=== PATIENT | male | born 1950 | race Caucasian/White ===

== ENCOUNTER 2025-01-22 16:54 | Inpatient (IN) | payer MEDICARE, OTHER ==
[~2025-01-22] VITALS: Ht 170.2 cm; Wt 68.0 kg
[2025-01-22 17:39] LABS: PLATELET COUNT (AUTO) 196 K/uL (152-348); RED BLOOD CELL COUNT(AUTO) 5.27 MIL/uL (4.06-5.63); RED CELL DISTRIBUTION WIDTH 14.7 % (12.1-16.2); WHITE BLOOD COUNT (AUTO) 10.3 K/uL (3.6-10.2)
[2025-01-22 17:48] LABS: CREATININE 1.2 mg/dL (0.6-1.3); SODIUM SERUM 146 mmol/L (136-145); UREA NITROGEN, BLOOD 29 mg/dL (7-18)
[2025-01-22] MEDS ORDERED: OLANZAPINE 10 MG VIAL IM ONE (17:48)
[2025-01-22] MEDS ORDERED: LORAZEPAM 2 MG/1 ML VIAL ONE (17:49)
[2025-01-22] MEDS: OLANZAPINE 10 MG VIAL IM ONE (17:49)
[2025-01-22] MEDS: LORAZEPAM 2 MG/1 ML VIAL IM ONE (17:49)
[2025-01-22 17:54] LABS: ASPARTATE AMINOTRANSFERASE 10 U/L (15-37); ETHANOL < 3 MG/DL (0-10); TOTAL PROTEIN, SERUM 7.5 g/dL (6.4-8.2)
[2025-01-22] MEDS ORDERED: MEMA10TA PO (17:56)
[2025-01-22] MEDS ORDERED: AMIN30LI66 PO (17:56)
[2025-01-22] MEDS ORDERED: RISP2TAB5 PO (17:56)
[2025-01-22] MEDS ORDERED: ATEN50TA PO (17:56)
[2025-01-22] MEDS ORDERED: QUET25TA PO (17:56)
[2025-01-22] MEDS ORDERED: ZINC50TA69 PO (17:56)
[2025-01-22] MEDS ORDERED: TAMS-3 PO (17:56)
[2025-01-22] MEDS ORDERED: ASCO500C19 PO (17:56)
[2025-01-22] MEDS ORDERED: DIVA250T4 PO (17:56)
[2025-01-22] MEDS ORDERED: LORA-259 PO (17:56)
[2025-01-22] MEDS ORDERED: FENO145T21 PO (17:56)
[2025-01-22] MEDS ORDERED: ASPI81TA31 PO (17:56)
[2025-01-22] MEDS ORDERED: OLAN5TAB70 PO (17:56)
[2025-01-22 19:06] VITALS: BP 158/105
[2025-01-22] MEDS ORDERED: TEMAZEPAM 7.5 MG CAPSULE PO PRN (21:30)
[2025-01-22] MEDS ORDERED: MAGNESIUM HYDROXIDE 30 ML LIQUID UDC PO PRN (21:30)
[2025-01-22] MEDS ORDERED: MAG HYDROX/AL HYDROX/SIMETH 30 ML LIQUID UDC PO PRN (21:30)
[2025-01-22] MEDS: LORAZEPAM 1 MG TABLET PO PRN (21:42)
[2025-01-22] MEDS: ACETAMINOPHEN 325 MG TABLET PO PRN (21:42)
[2025-01-22 21:45] VITALS: BP 158/83; TEMP 97.7; O2SAT 98
[2025-01-22] MEDS: BLOOD SUGAR DIAGNOSTIC 1 EACH STRIP VI ONE (22:25)
[2025-01-23] MEDS: PROTEIN SUPPLEMENT (PROSTAT) 30 ML LIQUID PO SCH (08:15)
[2025-01-23] MEDS: ASCORBIC ACID 500 MG TABLET PO SCH (08:30)
[2025-01-23] MEDS: ATENOLOL 50 MG TABLET PO SCH (08:31)
[2025-01-23] MEDS: ZINC SULFATE 220 MG CAPSULE PO SCH (08:31)
[2025-01-23] MEDS: ASPIRIN 81 MG TAB.CHEW PO SCH (08:32)
[2025-01-23 08:40] LABS: GLUCOSE FASTING 121.0 mg/dL (70-115)
[2025-01-23 08:43] VITALS: BP 131/98; O2SAT 98
[2025-01-23] MEDS ORDERED: ACET325T53 PO (09:30)
[2025-01-23] MEDS ORDERED: MAGN400O6 PO (09:31)
[2025-01-23] MEDS ORDERED: NA P133E RC (09:32)
[2025-01-23] MEDS ORDERED: DOCU100C36 PO (09:32)
[2025-01-23] MEDS ORDERED: BISA10SU61 RC (09:33)
[2025-01-23] MEDS ORDERED: IBUP-76 PO (09:34)
[2025-01-23] MEDS ORDERED: HYDR-4209 PO (09:35)
[2025-01-23] MEDS ORDERED: CLON0.1T PO (09:36)
[2025-01-23] MEDS: DIVALPROEX 250 MG TABLET.DR PO SCH (12:59)
[2025-01-23 15:53] VITALS: BP 163/103; O2SAT 98
[2025-01-23] MEDS: CLONIDINE-TTS 1 PATCH TD SCH (16:19)
[2025-01-23 20:00] VITALS: BP 171/100; TEMP 96.5; O2SAT 98
[2025-01-23] MEDS: TAMSULOSIN HCL 0.4 MG CAP.SR.24H PO SCH (20:51)
[2025-01-23] MEDS: FENOFIBRATE NANOCRYSTALLIZED 145 MG TABLET PO SCH (20:51)
[2025-01-24 06:23] VITALS: BP 130/78; O2SAT 92
[2025-01-24 08:00] VITALS: BP 146/73; TEMP 98; O2SAT 96
[2025-01-24] MEDS: LORAZEPAM 1 MG TABLET PO PRN (13:32)
[2025-01-24 15:47] VITALS: BP 136/69; TEMP 98; O2SAT 96
[2025-01-24] MEDS: QUETIAPINE FUMARATE 25 MG TABLET PO SCH ×2 (16:53→20:24)
[2025-01-24 20:00] VITALS: BP 156/76; TEMP 97.8; O2SAT 96
[2025-01-24] MEDS: TEMAZEPAM 7.5 MG CAPSULE PO PRN (21:56)
[2025-01-25 07:47] VITALS: BP 100/61; TEMP 97.8; O2SAT 98
[2025-01-25 15:48] VITALS: BP 112/70; TEMP 98; O2SAT 98
[2025-01-25 20:00] VITALS: BP 135/56; TEMP 98.1; O2SAT 97
[2025-01-25] MEDS: REMEDY ESSENTIAL ZINC PASTE 113 GM TOP SCH (20:25)
[2025-01-26 08:12] VITALS: BP 123/54; TEMP 98.2; O2SAT 96
[2025-01-26 15:34] VITALS: BP 125/52; TEMP 98; O2SAT 98
[2025-01-26 20:00] VITALS: BP 109/51; TEMP 97.6; O2SAT 97
[2025-01-27 08:12] VITALS: BP 117/57; TEMP 98; O2SAT 98
[2025-01-27 16:48] VITALS: BP 117/57; TEMP 98; O2SAT 98
[2025-01-27 20:00] VITALS: BP 161/80; TEMP 98.3; O2SAT 97
[2025-01-28 07:15] LABS: PLATELET COUNT (AUTO) 93 K/uL (152-348); RED BLOOD CELL COUNT(AUTO) 4.61 MIL/uL (4.06-5.63); RED CELL DISTRIBUTION WIDTH 14.6 % (12.1-16.2); WHITE BLOOD COUNT (AUTO) 5.3 K/uL (3.6-10.2)
[2025-01-28 07:33] LABS: CREATININE 1.1 mg/dL (0.6-1.3); SODIUM SERUM 145 mmol/L (136-145); UREA NITROGEN, BLOOD 23 mg/dL (7-18)
[2025-01-28 08:20] VITALS: BP 145/79; TEMP 98; O2SAT 98
[2025-01-28 08:38] LABS: NEUTROPHILS % (MANUAL) 57 % (42-75)
[2025-01-28 08:39] LABS: EOSINOPHILS % (MANUAL) 3 % (0-8); LYMPHOCYTES % (MANUAL) 33 % (20-40); MONOCYTES % (MANUAL) 7 % (2-10); PLATELET ESTIMATE DECREASED
[2025-01-28 20:00] VITALS: BP 204/101; TEMP 97.9; O2SAT 99
[2025-01-28] MEDS: QUETIAPINE FUMARATE 25 MG TABLET PO SCH (20:56)
[2025-01-28 21:00] VITALS: BP 168/80
[2025-01-28 23:55] VITALS: BP 138/66
[2025-01-29] MEDS: CLONIDINE-TTS 1 PATCH TD SCH (00:12)
[2025-01-29 07:57] LABS: PLATELET COUNT (AUTO) 92 K/uL (152-348); RED BLOOD CELL COUNT(AUTO) 4.56 MIL/uL (4.06-5.63); RED CELL DISTRIBUTION WIDTH 14.7 % (12.1-16.2); WHITE BLOOD COUNT (AUTO) 4.3 K/uL (3.6-10.2)
[2025-01-29 08:12] VITALS: BP 102/60; O2SAT 97
[2025-01-29] MEDS: QUETIAPINE FUMARATE 25 MG TABLET PO SCH (12:57)
[2025-01-29] MEDS: DIVALPROEX SPRINKLE 125 MG CAP.SPRINK PO SCH (12:59)
[2025-01-29] MEDS ORDERED: DIVALPROEX SPRINKLE 125 MG CAP.SPRINK PO SCH (13:00)
[2025-01-29 20:00] VITALS: BP 145/71; TEMP 97.6; O2SAT 97
[2025-01-29] MEDS: ATORVASTATIN 40 MG TABLET PO SCH (20:35)
[2025-01-30 07:36] VITALS: BP 153/74; TEMP 97.7; O2SAT 97
[2025-01-30] MEDS ORDERED: CLONIDINE-TTS 1 PATCH TD SCH (09:00)
[2025-01-30 16:00] VITALS: BP 144/76; TEMP 97.7; O2SAT 97
[2025-01-30] MEDS: QUETIAPINE FUMARATE 25 MG TABLET PO SCH (17:21)
[2025-01-30 20:00] VITALS: BP 132/64
[2025-01-30] MEDS: QUETIAPINE FUMARATE 100 MG TABLET PO SCH (21:05)
[2025-01-31 08:16] VITALS: BP 136/62; TEMP 98.2; O2SAT 96
[2025-01-31] MEDS: DIVALPROEX SPRINKLE 125 MG CAP.SPRINK PO SCH (09:03)
[2025-01-31 10:03] LABS: *BILIRUBIN,URIN 1+ (NEGATIVE); *BLOOD, URINE NEGATIVE (NEGATIVE); *CLARITY,URINE CLEAR (CLEAR); *COLOR,URINE Other (YELLOW); *KETONES,URINE 1+ (NEGATIVE); *PROTEIN,URINE NEGATIVE (NEGATIVE); *UROBILINOGEN,URINE 4.0 E.U./dl (NORMAL); LEUKOCYTE ESTERASE ,URINE 1+ (NEGATIVE); NITRITE, URINE NEGATIVE (NEGATIVE); UGLUCOSE NEGATIVE (NEGATIVE)
[2025-01-31 10:41] LABS: CALCIUM OXALATE CRYSTALS,UR FEW /HPF (NONE SEEN)
[2025-01-31 15:49] VITALS: BP 131/67; TEMP 98.2; O2SAT 99
[2025-01-31 20:01] VITALS: BP 161/70; TEMP 97.8; O2SAT 98
[2025-02-01 07:32] LABS: PLATELET COUNT (AUTO) 87 K/uL (152-348); RED BLOOD CELL COUNT(AUTO) 5.01 MIL/uL (4.06-5.63); RED CELL DISTRIBUTION WIDTH 14.9 % (12.1-16.2); WHITE BLOOD COUNT (AUTO) 4.6 K/uL (3.6-10.2)
[2025-02-01 08:07] VITALS: BP 102/63; TEMP 98; O2SAT 96
[2025-02-01 09:08] LABS: NEUTROPHILS % (MANUAL) 51 % (42-75)
[2025-02-01 09:09] LABS: EOSINOPHILS % (MANUAL) 3 % (0-8); LYMPHOCYTES % (MANUAL) 36 % (20-40); MONOCYTES % (MANUAL) 10 % (2-10); PLATELET ESTIMATE DECREASED
[2025-02-01 15:15] VITALS: BP 143/72; TEMP 97.8; O2SAT 99
[2025-02-01] MEDS: DIVALPROEX SPRINKLE 125 MG CAP.SPRINK PO SCH (17:08)
[2025-02-01 19:33] VITALS: BP 134/74; TEMP 97.9; O2SAT 98
[2025-02-01] MEDS: QUETIAPINE FUMARATE 100 MG TABLET PO SCH (20:41)
[2025-02-02 08:21] VITALS: BP_SYST 136; BP_DIAS 50; BP_DIAS 60; TEMP 98.2; O2SAT 98
[2025-02-02 15:10] VITALS: BP 163/75; TEMP 98.2; O2SAT 98
[2025-02-02 19:54] VITALS: BP 146/74; TEMP 98.1; O2SAT 98
[2025-02-03 08:14] VITALS: BP 136/65; TEMP 98.2; O2SAT 98
[2025-02-03 16:30] VITALS: BP 142/95; TEMP 98.2; O2SAT 98
[2025-02-03 20:00] VITALS: BP 142/81; TEMP 98; O2SAT 100
[2025-02-04 08:14] VITALS: BP 122/64; TEMP 98.2; O2SAT 98
[2025-02-04 08:23] LABS: PLATELET COUNT (AUTO) 98 K/uL (152-348); RED BLOOD CELL COUNT(AUTO) 4.92 MIL/uL (4.06-5.63); RED CELL DISTRIBUTION WIDTH 14.4 % (12.1-16.2); WHITE BLOOD COUNT (AUTO) 6.4 K/uL (3.6-10.2)
[2025-02-04] MEDS: QUETIAPINE FUMARATE 25 MG TABLET PO SCH (14:12)
[2025-02-04 16:21] VITALS: BP 119/61; TEMP 98.2; O2SAT 98
[2025-02-04 20:00] VITALS: BP 120/80; TEMP 97.8; O2SAT 99
[2025-02-05 08:14] VITALS: BP 127/68; TEMP 98.2; O2SAT 98
[2025-02-05 16:43] VITALS: BP 119/61; TEMP 98.2; O2SAT 98
[2025-02-05 20:00] VITALS: BP 138/60; TEMP 98.4; O2SAT 97
[2025-02-06 08:25] VITALS: BP 139/66; TEMP 97.6; O2SAT 97
[2025-02-06 08:26] LABS: PLATELET COUNT (AUTO) 112 K/uL (152-348); RED BLOOD CELL COUNT(AUTO) 4.57 MIL/uL (4.06-5.63); RED CELL DISTRIBUTION WIDTH 14.5 % (12.1-16.2); WHITE BLOOD COUNT (AUTO) 5.5 K/uL (3.6-10.2)
[2025-02-06 08:45] LABS: ASPARTATE AMINOTRANSFERASE 8 U/L (15-37); CREATININE 1.0 mg/dL (0.6-1.3); SODIUM SERUM 149 mmol/L (136-145); TOTAL PROTEIN, SERUM 6.7 g/dL (6.4-8.2); UREA NITROGEN, BLOOD 20 mg/dL (7-18); VALPROIC ACID < 3 ug/mL (50-100)
[2025-02-06 16:00] VITALS: BP 123/64; TEMP 97.8; O2SAT 100
[2025-02-06 20:13] VITALS: BP 134/66; TEMP 97.9; O2SAT 98
[2025-02-07 07:49] VITALS: BP 117/56; TEMP 98; O2SAT 98
[2025-02-07 09:00] VITALS: BP 117/56
[2025-02-07] MEDS ORDERED: HYDROCORTISONE 0.5% CREAM 28.35 GM TUBE TOP SCH (17:00)
== END 2025-02-07 13:40 | DRG 885 ==
LOC: ER 17:24 → UNDOADMIN 21:07 → GPS 21:07
PROVIDERS: ADMIT Psychiatry & Neurology Psychosomatic Medicine; ATTEND Nurse Practitioner Acute Care
DX: F39 Unspecified mood [affective] disorder (principal); E87.0 Hyperosmolality and hypernatremia; N39.0 Urinary tract infection, site not specified; F03.93 Unspecified dementia, unspecified severity, with mood disturbance; F03.92 Unspecified dementia, unspecified severity, with psychotic disturbance; F29 Unspecified psychosis not due to a substance or known physiological condition; E86.0 Dehydration; D72.829 Elevated white blood cell count, unspecified; E78.5 Hyperlipidemia, unspecified; I10 Essential (primary) hypertension; I48.91 Unspecified atrial fibrillation; J44.9 Chronic obstructive pulmonary disease, unspecified; G40.909 Epilepsy, unspecified, not intractable, without status epilepticus; Z20.822 Contact with and (suspected) exposure to COVID-19; Z73.6 Limitation of activities due to disability; F32.A Depression, unspecified
CPT/HCPCS: 36415; 70030-TC; 70450; 70486; 73521; 80164; 83735; 84100; 85025; 87086; A4663; G0480; J2060; J2358; J3490